=== PATIENT | female | born 1980 ===

== ENCOUNTER 2024-12-09 00:38 | Emergency (ER) | payer BC ==
[2024-12-09] MEDS: Take Home: Acetaminophen/Codeine 300 MG/30 MG, 5 Tab Pack PO ONE (01:55)
== END 2024-12-09 02:05 | disposition home or self-care (01) ==
LOC: LL.ED 00:38
DX: S82.65XA Nondisplaced fracture of lateral malleolus of left fibula, initial encounter for closed fracture (principal); Z79.899 Other long term (current) drug therapy; W01.0XXA Fall on same level from slipping, tripping and stumbling without subsequent striking against object, initial encounter; Y93.89 Activity, other specified
CPT/HCPCS: 73610-LT; 99283; A9270-GY